=== PATIENT | female | born 1995 | race Two or more races ===

== ENCOUNTER → 2019-04-30 | Emergency (ER) | payer SELFPAY | END | disposition left against medical advice (07) | LOC: ER 19:12 | DX: R05 Cough (principal); Z53.21 Procedure and treatment not carried out due to patient leaving prior to being seen by health care provider ==

== ENCOUNTER 2019-05-01 15:05 | Emergency (ER) | payer SELFPAY ==
[~2019-05-01] VITALS: Ht 165.1 cm; Wt 56.7 kg
[2019-05-01 17:05] VITALS: BP 129/87
== END 2019-05-01 17:06 | disposition home or self-care (01) ==
LOC: ER 15:05
DX: J04.0 Acute laryngitis (principal)

== ENCOUNTER 2023-02-19 12:45 | Emergency (ER) | payer MEDICAID ==
[~2023-02-19] VITALS: Ht 162.6 cm; Wt 68.3 kg
[2023-02-19 13:18] VITALS: BP 128/80; PULSE 89; RESP 16; TEMP 97.6; O2SAT 97
[2023-02-19] MEDS ORDERED: KETOROLAC TROMETH 60MG/2ML VIAL IM ONE (13:45)
[2023-02-19] MEDS ORDERED: METH-1182 PO (14:06)
[2023-02-19] MEDS ORDERED: IBUP-1456 PO (14:06)
== END 2023-02-19 14:22 | disposition home or self-care (01) ==
LOC: ER 12:45
DX: S29.011A Strain of muscle and tendon of front wall of thorax, initial encounter (principal); X58.XXXA Exposure to other specified factors, initial encounter; Y93.89 Activity, other specified; Y92.89 Other specified places as the place of occurrence of the external cause; Y99.8 Other external cause status
CPT/HCPCS: 71046; 96372; 99283; J1885